=== PATIENT | male | born 1975 | race African-American/Black ===

== ENCOUNTER 2017-05-21 20:52 | Emergency (ER) | payer MEDICAID ==
[~2017-05-21] VITALS: Ht 182.9 cm; Wt 110.7 kg
[2017-05-21 20:57] VITALS: BP 134/80
== END 2017-05-21 22:30 | disposition left against medical advice (07) ==
LOC: ED 20:52
DX: Z53.21 Procedure and treatment not carried out due to patient leaving prior to being seen by health care provider (principal)

== ENCOUNTER 2017-05-23 18:21 | Emergency (ER) | payer MEDICAID ==
[~2017-05-23] VITALS: Ht 182.9 cm; Wt 108.0 kg
[2017-05-23 18:37] VITALS: Ht 182.9 cm; Wt 108.0 kg
[2017-05-23 22:16] VITALS: BP 159/86
== END 2017-05-23 22:16 | disposition home or self-care (01) ==
LOC: ED 18:21
DX: J11.1 Influenza due to unidentified influenza virus with other respiratory manifestations (principal); L03.031 Cellulitis of right toe
CPT/HCPCS: 87804